=== PATIENT | male | born 1945 | race Two or more races ===

== ENCOUNTER 2017-01-27 18:34 | Emergency (ER) | payer MEDICARE, OTHER ==
[~2017-01-27 18:34] MED LIST: ADVAI250I PO; ALBU0.086 NEB; ALBU1AER INH; BACT800T5 PO; PRED20 PO; VENTAER INH
[2017-01-27 18:37] VITALS: BP 125/76; PULSE 68; RESP 28; TEMP 97.5; O2SAT 95
--- NOTE | 2017-01-27 18:55 | PD ---
Physical Exam Time Seen by Provider: 18:53 Narrative 71 y/o male with hx of copd presents with SOB after running out of inhaler this morning. He endorses some pain on the left side fo his abdomen/chest as well. Vital signs reviewed. Seen at triage desk. Awaiting bed placement. Data Data Last Documented VS Vital Signs Date Time Temp Pulse Resp B/P Pulse Ox O2 Delivery O2 Flow Rate FiO2 01/27/17 18:37 97.5 68 28 125/76 95 Room Air [facility] Medical Record Reviewed: Yes Supervised Visit with LUPE: Jose Velásquez Jan 27, 2017 18:55
[2017-01-27 22:38] VITALS: BP 149/81; PULSE 68; RESP 21; O2SAT 98
[2017-01-27] MEDS ORDERED: ALBUAER3 INH ×2 (22:38→22:41)
--- NOTE | 2017-01-27 22:42 | PD ---
HPI Chief Complaint: Respiratory Symptoms Time Seen by Provider: 22:32 Travel History International Travel<30 days: No Contact w/Intl Traveler<30days: No Traveled to known affect area: No History of Present Illness HPI 71-year-old male with a history of COPD he arrives complaining of shortness of breath. He also states "the heat's got me." He reports having run out of his albuterol inhaler this past morning at 2:30 AM, about 20 hours ago. He reports he has been short of breath for the past 12 hours or so. He reports a cough lately with clear phlegm. He denies fever. PFSH Past Medical History Hx Anticoagulant Therapy: No Asthma: Yes Blood Disorders: No Cancer: No Cardiovascular Problems: No Chemotherapy: No COPD: Yes Cerebrovascular Accident: No Diabetes: No Diminished Hearing: No Endocrine: No Genitourinary: No Immune Disorder: No Musculoskeletal: No Neurologic: No Psychiatric: No Reproductive: No Respiratory: Yes (COPD,ASTHMA) Immunizations Current: No Radiation Therapy: No Sleep Apnea: No PNEUMOCCOCAL Vaccine (Year): 2 Past Surgical History AICD: No Arteriovenous Shunt: No Insulin Pump: No Joint Replacement: No Pacemaker: No Social History Alcohol Use: Yes ([facility]) Tobacco Use: No (quit 3 yrs 2008) Substance Use: No Allergies-Medications (Allergen,Severity, Reaction): Coded Allergies: No Known Allergies (Verified , 01/27/17) Reported Meds & Prescriptions Reported Meds & Active Scripts Active Azithromycin 250 Mg Tab 250 Mg PO DIRECTED Take 2 tabs (500 mg) on day 1 then 1 tab daily x 4 days. Proair Hfa 8.5 GM Inh (Albuterol Sulfate) 90 Mcg/Act Aer 2 Puff INH Q6H PRN 108 mcg/actuation Review of Systems Except as stated in HPI: all other systems reviewed are Neg Physical Exam Narrative GENERAL: 71-year-old male emphysematous habitus speaking full sentences pleasant ambulatory SKIN: Focused skin assessment warm/dry. HEAD: Atraumatic. Normocephalic. EYES: Pupils equal and round. No scleral icterus. No injection or drainage. ENT: No nasal bleeding or discharge. Mucous membranes pink and moist. NECK: Trachea midline. No JVD. CARDIOVASCULAR: Regular rate and rhythm. No murmur appreciated. RESPIRATORY: Wheezing present bilaterally. Patient speaking full sentences. GASTROINTESTINAL: Abdomen soft, non-tender, nondistended. Hepatic and splenic margins not palpable. MUSCULOSKELETAL: No obvious deformities. No clubbing. No cyanosis. No edema. NEUROLOGICAL: Awake and alert. No obvious cranial nerve deficits. Motor grossly within normal limits. Normal speech. PSYCHIATRIC: Appropriate mood and affect; insight and judgment normal. Data Data Last Documented VS Vital Signs Date Time Temp Pulse Resp B/P Pulse Ox O2 Delivery O2 Flow Rate FiO2 01/27/17 22:43 98 Room Air 01/27/17 22:38 74 19 01/27/17 18:37 97.5 125/76 Vital signs reviewed Orders Oximetry (01/27/17 22:37) Oxygen Administration (01/27/17 22:37) Sodium Chloride 0.9% Flush (Ns Flush) (01/27/17 22:45) Albuterol-Ipratropium Neb (Duoneb Neb) (01/27/17 22:45) Dexamethasone Inj (Decadron Inj) (01/27/17 22:45) Albuterol Hfa Inh (Proair Hfa Inh) (01/27/17 22:45) [facility] Medical Decision Making Medical Screen Exam Complete: Yes Emergency Medical Condition: Yes Medical Record Reviewed: Yes Differential Diagnosis COPD exacerbation, pneumonia, medication refill Narrative Course Patient reports feeling much better upon reassessment at 11:20 PM. He notes that typically the heat in the summer time tends to make the COPD symptoms worse. Significant improvement with Decadron is anticipated over the course of the evening. He'll be discharged with an albuterol inhaler provided here as well as a refill for one and a prescription for azithromycin. The patient has follow-up with Dr. German. Diagnosis Primary Impression: COPD exacerbation Referrals: Primary Care Physician call for appointment Additional Instructions: You have a choice when it comes to health care, and we are glad that you chose [facility]. Hopefully, we have met your expectations on today's visit. You are welcome to return to [facility] at any time, as we are committed to meeting the health care needs of our community. Med/Other Pt SpecificInfo: Prescription(s) given Scripts Azithromycin 250 Mg Lsq800 Mg PO DIRECTED #6 TAB Ref 0 Take 2 tabs (500 mg) on day 1 then 1 tab daily x 4 days. Prov:Ernst Mcintosh MD 01/27/17 Albuterol 8.5 GM Inh (Proair Hfa 8.5 GM Inh)90 Mcg/Act Aer2 Puff INH Q6H PRN ( SHORTNESS OF BREATH) #1 INHALER Ref 0 108 mcg/actuation Prov:Ernst Mcintosh MD 01/27/17 Disposition: 01 DISCHARGE HOME Condition: Stable Ernst Mcintosh MD Jan 27, 2017 22:42
[2017-01-27] MEDS ORDERED: SODIUM CHLORIDE 0.9% FLUSH 10 ML FLUSH IVF PRN (22:45)
[2017-01-27] MEDS ORDERED: DEXAMETHASONE SOD PHOS 4 MG/ML VIAL IM ONE (22:45)
[2017-01-27] MEDS ORDERED: ALBUTEROL SULFATE 90 MCG/ACT HFA 8 GM INHALER INH ONE (22:45)
[2017-01-27] MEDS: RESP: ALBUTEROL 2.5 MG/IPRATROPIUM 0.5 MG NEB (SCH) INH ×2 (22:48→22:49)
[2017-01-27] MEDS ORDERED: AZIT250T3 PO (23:22)
== END 2017-01-27 23:38 | disposition home or self-care (01) ==
LOC: NEPE 18:34
DX: J44.1 Chronic obstructive pulmonary disease with (acute) exacerbation (principal); Z87.09 Personal history of other diseases of the respiratory system; Z87.891 Personal history of nicotine dependence
CPT/HCPCS: 94640; 94664; 96372; 99285; J1100